=== PATIENT | female | born 1970 | race Two or more races ===

== ENCOUNTER 2017-02-09 17:40 | Emergency (ER) | payer OTHER, MEDICAID ==
--- NOTE | 2017-02-09 20:19 | RAD ---
Name: MIRNA HUBBARD Exam: Right hand Comparison: None Clinical history: Right hand pain and swelling Findings: 3 views right hand are submitted bone density is normal. There is mild spurring of the distal phalanx of the thumb. There is mild positive ulnar variance. Carpal alignment is normal. There is no fracture, dislocation, periosteal reaction, foreign body or erosion. Impression: No suspicious bony abnormality
[2017-02-09] MEDS ORDERED: KETOROLAC TROMETHAMINE 30 MG/ML 1 ML VIAL ONE (20:31)
== END 2017-02-09 21:54 | disposition home or self-care (01) ==
LOC: ED 17:40
DX: M79.644 Pain in right finger(s) (principal); X50.3XXA Overexertion from repetitive movements, initial encounter; Y92.69 Other specified industrial and construction area as the place of occurrence of the external cause; Y99.0 Civilian activity done for income or pay
CPT/HCPCS: 73130; 99283 ×2; 96372; J1885